=== PATIENT | female | born 1935 | race African-American/Black ===

== ENCOUNTER 2016-08-09 22:18 | Emergency (ER) | payer MEDICARE, BC ==
[~2016-08-09] VITALS: Ht 162.6 cm; Wt 117.9 kg
--- NOTE | 2016-08-09 22:28 | NUR ---
Dr Lion at bedside for eval.
--- NOTE | 2016-08-09 22:30 | NUR ---
TO BED 7 A 81 YO FEMALE BIBA#78 PT CAREGIVER STATES PT HAS BEEN HAVNG SOB X 1 DAY GETTING WORSE. UPON ARRIVAL TO ER, PATIENT IS LETHARGIC, RESPONSIVE TO TACTILE AND PAIN STIMULI. WITH ONGOING 2LPM VIA NC, ZAHIRA WELL WITH O2 SATURATION AT 99%. AFIB WITH HR AT 70'S ON THE MONITOR. NOTED CHRIS ROSIBEL EDEMA ON THE LOWER EXTREMITIES. KEPT HOB ELEVATED. INITIATED COMFORT AND SAFETY MEASURES. GOWNED. AWAITING FOR ER MD MARTIN.
--- NOTE | 2016-08-09 22:36 | NUR ---
CALLED NURSING SUP. FOR TELE BED
[2016-08-09 23:50] LABS: BASOPHILS % (AUTO) 0.5 % (0.0-2.0); EOSINOPHILS # (AUTO) 0.5 /CMM (0.0-0.7); EOSINOPHILS % (AUTO) 6.3 % (0.0-6.0); HEMATOCRIT 35 % (33-45); LYMPHOCYTES # (AUTO) 0.6 /CMM (0.8-4.8); LYMPHOCYTES % (AUTO) 8.1 % (20.0-44.0); MEAN CORPUSCULAR HEMOGLOBIN 31 PG (26.0-33.0); MEAN CORPUSCULAR HGB CONC 32 g/dl (31.0-36.0); MEAN CORPUSCULAR VOLUME 97 fL (82-100); MONOCYTES # (AUTO) 0.6 /CMM (0.1-1.30); MONOCYTES % (AUTO) 8.1 % (2.0-12.0); NEUTROPHILS # (AUTO) 5.9 /CMM (1.8-8.9); PLATELET COUNT (AUTO) 137 /CMM (150-450); RDW COEFFICIENT OF VARIATION 21.2 (11.5-15.0); RED BLOOD CELL COUNT(AUTO) 3.58 MIL/uL (4.0-5.2); WHITE BLOOD COUNT (AUTO) 7.7 K/uL (4.3-11.0)
[2016-08-09 23:53] LABS: CALCIUM, SERUM 9.3 mg/dL (8.5-10.1); POTASSIUM 4.8 mmol/L (3.5-5.1)
[2016-08-09 23:58] LABS: INR 2.6 (0.87-1.13); PROTHROMBIN TIME 29.6 SECS (9.5-12.7)
[2016-08-10] LABS: TROPONIN I 0.061 ng/mL (0.00-0.056)
[2016-08-10] MEDS ORDERED: IOHEXOL-350 100 ML VIAL IV ONE (00:04)
[2016-08-10] MEDS ORDERED: IV NS 0.9% 250 ML IV ONE (00:04)
[2016-08-10 00:05] LABS: ALBUMIN 3.6 g/dL (3.4-5.0); BILIRUBIN,DIRECT 0.3 mg/dL (0.0-0.2); BILIRUBIN,TOTAL 0.7 mg/dL (0.2-1.0); TOTAL PROTEIN, SERUM 7.9 g/dL (6.4-8.2)
--- NOTE | 2016-08-10 00:27 | NUR ---
Dr Lion at bedside with patient and after discussing with family treatment plans, family refused to have patient undergo ct scan, straight cath for urine test and they want to transfer patient to [facility].
[2016-08-10 00:42] VITALS: BP 135/80
--- NOTE | 2016-08-10 01:28 | NUR ---
Clayton, son, signed AMA form after discussing and education from Dr Lion. Family verbalized understanding of risks from leaving AMA.
--- NOTE | 2016-08-10 01:29 | NUR ---
IV removed. Catheter intact and site benign. Pressure and 4x4 applied to site. No bleeding noted. Patient left with family via private car to [facility].
== END 2016-08-10 01:30 | disposition left against medical advice (07) ==
LOC: ER 22:20
DX: I21.4 Non-ST elevation (NSTEMI) myocardial infarction (principal); I11.0 Hypertensive heart disease with heart failure; I50.9 Heart failure, unspecified; I48.91 Unspecified atrial fibrillation; Z85.3 Personal history of malignant neoplasm of breast; Z85.41 Personal history of malignant neoplasm of cervix uteri
CPT/HCPCS: 36415; 80048-TC; 80076-TC; 83605-TC; 83880; 84484-TC; 85025-TC; 85730-TC; 87040-TC; 93970-TC; A4606; J7050; Q9967; Z7610